=== PATIENT | female | born 1950 | race Caucasian/White ===

== ENCOUNTER 2021-06-26 03:44 | Emergency (ER) | payer BC ==
[~2021-06-26] VITALS: Ht 165.1 cm; Wt 74.8 kg
[2021-06-26] MEDS ORDERED: TOPROL XL50 M1 (03:59)
[2021-06-26] MEDS ORDERED: AZOR 10-20 MG1 EACH (03:59)
[2021-06-26] MEDS ORDERED: PEPCID AC10 MG (03:59)
[2021-06-26] MEDS ORDERED: CELEBREX200MG (03:59)
== END 2021-06-26 05:41 | disposition home or self-care (01) ==
LOC: ER 03:44
DX: S01.112A Laceration without foreign body of left eyelid and periocular area, initial encounter (principal); W18.39XA Other fall on same level, initial encounter; Y92.012 Bathroom of single-family (private) house as the place of occurrence of the external cause; I10 Essential (primary) hypertension